=== PATIENT | female | born 1965 | race Caucasian/White ===

== ENCOUNTER 2018-04-22 08:25 | Day surgery (SDC) | payer OTHER ==
[~2018-04-22] VITALS: Ht 160 cm; Wt 112.5 kg
[2018-04-22 09:23] VITALS: BP 136/63
[2018-04-22 14:57] VITALS: BP 133/83
== END 2018-04-22 12:20 | disposition home or self-care (01) ==
LOC: GI 08:25 → OR 10:30 → GI 10:30
PROVIDERS: Internal Medicine Gastroenterology
PROC: 0DBL8ZZ Excision of Transverse Colon, Via Natural or Artificial Opening Endoscopic (ICD-10-PCS; principal; 2018-04-22 10:30)
DX: Z12.11 Encounter for screening for malignant neoplasm of colon (principal); K57.30 Diverticulosis of large intestine without perforation or abscess without bleeding; K63.5 Polyp of colon; I10 Essential (primary) hypertension; M19.90 Unspecified osteoarthritis, unspecified site; F32.9 Major depressive disorder, single episode, unspecified; Z96.652 Presence of left artificial knee joint; Z98.84 Bariatric surgery status; Z68.41 Body mass index [BMI] 40.0-44.9, adult
CPT/HCPCS: 45378; G0500; J1200; J1610; J2250; J2310; J3010; J3490